=== PATIENT | female | born 1990 | race Caucasian/White ===

== ENCOUNTER → 2017-01-07 | Outpatient (CLI) | payer OTHER ==
[2017-01-07 11:41] LABS: AUTOMATED NEUTROPHIL # 3.7 TH/MM3 (1.8-7.7); BASOPHIL % 0.4 % (0.0-2.0); EOSINOPHIL % 0.8 % (0.0-4.0); HEMATOCRIT 38.6 % (35.0-46.0); HEMO FLAGS DIFF FINAL; LYMPH % 32.4 % (9.0-44.0); MEAN CELL VOLUME 87.5 FL (80.0-100.0); MEAN CORPUSCULAR HEMOGLOBIN 29.4 PG (27.0-34.0); MEAN CORPUSCULAR HGB CONC 33.6 % (32.0-36.0); MONO % 6.8 % (0.0-8.0); NEUT % 59.6 % (16.0-70.0); PLATELET COUNT 249 TH/MM3 (150-450); RED BLOOD COUNT 4.41 MIL/MM3 (4.00-5.30); RED CELL DISTRIBUTION WIDTH 13.2 % (11.6-17.2); WHITE BLOOD COUNT 6.1 TH/MM3 (4.0-11.0)
[2017-01-07 11:52] LABS: APTT (PATIENT) 25.4 SEC (24.3-30.1); PROTHROMBIN TIME - PATIENT 10.8 SEC (9.8-11.6)
[2017-01-07 12:15] LABS: ALT (GPT) 48 U/L (10-53); ANION GAP 8 MEQ/L (5-15); AST (GOT) 30 U/L (15-37); BICARBONATE 25.3 MEQ/L (21.0-32.0); BLOOD UREA NITROGEN 12 MG/DL (7-18); CHLORIDE 104 MEQ/L (98-107); GLOMERULAR FILTRATION RATE 130 ML/MIN (>89); GLUCOSE,FASTING 95 MG/DL (74-99); POTASSIUM 3.9 MEQ/L (3.5-5.1); SODIUM (NA) 137 MEQ/L (136-145)
[2017-01-07 12:18] LABS: ALKALINE PHOSPHATASE 76 U/L (45-117); TOTAL BILIRUBIN ADULT 0.2 MG/DL (0.2-1.0)
[2017-01-07 12:22] LABS: BHCG SCREEN QUALITATIVE LESS THAN 1 MIU/ML (0-5)
== END ==
LOC: CPRE 10:43
PROVIDERS: ATTEND Obstetrics & Gynecology Gynecologic Oncology
DX: Z01.812 Encounter for preprocedural laboratory examination (principal); C53.9 Malignant neoplasm of cervix uteri, unspecified
CPT/HCPCS: 36415; 80053; 84703; 85025; 85610; 85730

== ENCOUNTER → 2017-01-12 | Day surgery (SDC) | payer OTHER ==
[~2017-01-12] VITALS: Ht 154.9 cm; Wt 65.1 kg
[~2017-01-12] MED LIST: *morphine SULFATE 8 MG/ML PERIprocedure ONLY ONE; ACETAMINOPHEN 1000 MG/100 ML 100 ML IV ONE; CHLORHEXIDINE GLUCONATE 2 % 1 PACK (2 CLOTHS) TOPICAL PRN; DEXAMETHASONE SOD PHOS 4 MG/ML VIAL IV ONE; DO NOT ADM ANY ANTICOAGULANT DRUGS PRN; FERRIC SUBSULFATE 8 ML TOP SOLN TOPICAL ONE; INSULIN HUMAN REGULAR 1,000 UNITS/10 ML VIAL SQ PRN; KETOROLAC TROMETHAMINE 30 MG/ML (IVP) VIAL IV PUSH ONE; KETOROLAC TROMETHAMINE 30 MG/ML (IVP) VIAL ONE; LACTATED RINGER'S 1000 ML IV PRN; LIDOCAINE 1%/EPINEPHrine 1:100,000 SOLN 50 ML VIAL ONE; LIDOCAINE HCL 1% PF 5 ML SYRINGE OTHER ONE; METOPROLOL TARTRATE 25 MG TAB PO PRN; MIDAZOLAM HCL 2 MG/2 ML VIAL IV ONE; ONDANSETRON HCL 4 MG/2 ML VIAL IV PUSH ONE; PHENYLEPH/NS 1000 MCG/10 ML SYR IV ONE; POVIDONE IODINE 5% (ANTISEPSIS KIT) 4 APPLICATIONS EACH NARE PRN; PROPOFOL 200 MG/20 ML AMP IV ONE; SODIUM CHLORID 0.9% 500 ML IV PRN; ceFAZolin INJ 1,000 MG VIAL ONE; oxyCODONE/ACETAMINOPHEN 5 MG/325 MG TAB PO PRN
--- NOTE | 2017-01-12 14:59 | MP ---
cc: CHELA WALL M.D., KELLY L. 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 PROCEDURE 1. Examination under anesthesia. 2. Cold knife conization of the cervix. 3. Endocervical curetting. 4. Cervix margin biopsy at 4 o'clock. 5. Cystoscopy. SURGEON Iram Blue. 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 ANESTHESIA Laryngeal mask. ESTIMATED BLOOD LOSS 20 cc. HISTORY A 26-year-old female with some irregular bleeding, abnormal Pap smear, led to colposcopy which led to a LEEP procedure. The LEEP procedure showed high-grade dysplasia with squamous cell carcinoma. The depth of invasion was at least 1 mm. The width of the tumor appeared to be least 5 mm. There was cautery artifact at the margins so the margin status could not be clarified. She was seen in the [facility] oncology office. She was counseled and recommendations were made for the need to clarify the presence or absence of any persistent tumor and whether or not the tumor is more significant than the initial measurements, as this may impact prognosis as well as specific treatment recommendations. She was counseled regarding the recommendations for conization and possible additional evaluation while under anesthesia. She is seen in the pre-op holding area where findings are again reviewed. Questions were answered. She expressed good understanding and agreed. FINDINGS On exam under anesthesia there are no appreciably enlarged inguinal lymph nodes. External genitalia is without mass or lesion. The vaginal mucosa appears normal. The cervix grossly appears normal and is circumferentially smooth. The uterus is small, only sounds to 6 cm. The cervix and uterus are mobile. There is no obvious parametrial nodularity or thickening. On the surface of the cervix there is some minimally friable tissue that does not look overtly neoplastic. It may be granulation tissue as healing from her recent LEEP procedure. Nevertheless, the possibility of persistent neoplasm must be considered. DETAILS OF PROCEDURE She was taken to the operating room and placed in the dorsal lithotomy position. After laryngeal mask anesthesia was administered a timeout was undertaken. She was identified by sight recognition and hospital ID bracelet and the proposed procedure was reviewed and confirmed. She was carefully positioned in the lithotomy position with arms out to the side. Exam under anesthesia was performed with findings as described above. She was prepped and draped in sterile fashion with in-and-out catheterization of the bladder. A 0 Vicryl stay suture is placed at the 3 o'clock and 9 o'clock position on the lateral wall of the cervix. Circumferential lidocaine and epinephrine was injected into the stroma of the cervix. The axis of the endocervical canal was identified with a narrow dilator. With countertraction on the cervix a scalpel was used circumferentially angling in toward the canal to perform a conization around the perimeter of the ectocervix angling in toward the endocervical canal. I finished the dissection sharply and removed the specimen as cervical conization. Endocervical curetting was performed circumferentially with multiple passes above the apex of the cone. A scant amount of tissue was obtained. Multiple passes of tissue was combined and labeled as endocervical sampling. As was discussed with her and reviewing the PET scan shows subtle PET-avid activity in the left posterolateral aspect of the cervix of uncertain significance. Indeed there was a nodule of firm tissue in this region that did not look overtly neoplastic but nevertheless a scalpel was used to remove this nodular thickened tissue in this location and it was labeled as cervix cone margin 4 o'clock. The cone bed was rendered hemostatic circumferentially with cautery and then with topical Monsel's solution there was complete hemostasis. The tenaculum was removed and the tenaculum sites were rendered hemostatic. Cystoscopy was performed using a 30-degree scope. The bladder mucosa appeared normal circumferentially. The ureteral ostia were visualized clearly bilaterally and there was positive efflux of urine bilaterally and the bladder was drained. Rigid proctosigmoidoscopy was not possible. Visibility was hindered due to inadequate bowel prep but on deep rectovaginal exam there was no mass, nodularity or polyp detected. MD PATO Harris/HARRY /2:01 PM /2:48 PM
[2017-01-12 15:41] VITALS: BP 107/72; PULSE 74; RESP 18; TEMP 98.7; O2SAT 98
== END | disposition home or self-care (01) ==
LOC: HSDC 11:05
PROVIDERS: ATTEND Obstetrics & Gynecology Gynecologic Oncology
DX: C53.9 Malignant neoplasm of cervix uteri, unspecified (principal)
CPT/HCPCS: 00940; 52000; 57520; 86850; 86900; 86901; 88305; 88307; J0131; J0690; J1100; J2250; J2270; J2370; J2405; J3010; J1885